=== PATIENT | male | born 1950 | race Caucasian/White ===

== ENCOUNTER 2016-08-28 12:10 | Outpatient (CLI) | payer MEDICARE, OTHER ==
[2016-08-28] MEDS ORDERED: Iopamidol 408 MG/ML 20 ML SDV ONE (13:14)
[2016-08-28] MEDS ORDERED: Dexamethasone 10 MG/ML SDV ONE (13:17)
[2016-08-28 14:28] VITALS: BP 143/72
--- NOTE | 2016-08-28 19:28 | PROC ---
TITLE: Evaluation. SUBJECTIVE: This patient returns today after having SI joint injection about 9 weeks ago. He stated that it was doing really well for him for about a week and he started to have little more discomfort and he went to the chiropractor and he has been pain-free since that time. Today, he comes in for increasing discomfort in his neck on the right side. He describes it as an aching pain which originates in his neck, goes out to his shoulder and then comes down and around into the nipple line. This dermatome is consistent with C4. He is having radicular type symptoms. When he positions his neck in certain ways, he begins to have a significant amount of tingling and severe pain going into the shoulder and there is severe increase in tingling in the chest area. It is around both the front and the back but only on the right side. He denies any weakness in the arm or anything going down into the arm itself other than to the shoulder. He says his pain is 4/10 today, it gets up to a 9/10, it is best at 1/10. It is made worse by his driving or positioning his head in certain ways like when he sleeps. He does get awakened in the night sometimes with this severe discomfort, repositions and goes back to sleep. What makes it better is repositioning as well as heat seems to help a little bit. The gabapentin seems to help as well. Chiropractor might have helped slightly. He says that each day that he does have this pain and it gets up to about a 9/10 every day. It is affecting his ability to do some of his the chores or to drive effectively. OBJECTIVE: This is a 65-year-old male, who is alert and oriented x3, he is quite pleasant and conversive. I did do upper muscle strength testing, did shoulder abduction, adduction, and flexion. These were 5/5 bilaterally. Forearm extension and flexion are 5/5 bilaterally. Wrist flexors and extensors were 5/5 bilaterally. Finger extensors and thumb were 5/5 bilaterally. Reflexes are 2+ in the biceps bilaterally, 2+ in the triceps bilaterally, and 2+ in the brachioradialis. Love's is negative bilaterally. Axial pressure is negative. Lhermitte test was negative. When I do apply pressure and laterally bend his neck to the right side he does start to have discomfort and tingling into the right shoulder and chest area. Axial bending of the neck reveals no restrictions except for right lateral rotation, which is -1 in movement and severe increase in discomfort when he does that. Pulses are 2+. Cap refill is less than 3 seconds bilaterally. Extremities are pink. This patient's pain is consistent with C4 radiculopathy. It is consistent with the C4 dermatome. I did find 1 trigger point in the trapezius on the right side. ASSESSMENT: Cervical radiculopathy with right-sided radiation, possible myofascial. Right shoulder and arm pain, right chest pain. PLAN: Plan to do a cervical epidural steroid injection at C7-T1. I also did talk to him about getting increasing doing some physical therapy to see if we can get a little more strength and conditioning. Patient says that he is sleeping well, we did discuss that. I did talk about doing exercises and other dye considerations as well. Radiation 32 seconds and 6.27 mGy. PROCEDURE NOTE: The patient was brought in the operating room and placed prone on the prone positioner. Knees and hips were flexed. Ankles placed on a bolster. Abdomen was allowed to hang freely in the prone within the positioner. Shoulders were well supported, less than 90 degrees. Head was in the head cradle with eyes and ears clear. I brought in the C-arm, targeting the C7-T1 interspace I squared up on the T1 vertebra. I then located the interspace and a using clamp on the skin for targeting slightly to the right side and when I got acceptable targeting I placed a karlo corresponding to that on the skin. At this point the area was prepped in a wide prep by Caitlyn Vincent R.N., with ChloraPrep. At this point, I placed a sterile fenestrated drape, plastic drape over the site. I then used 1% lidocaine and raised a skin wheal and infiltrated with approximately 5 mL of lidocaine superficially and deeply. I then placed a 20- gauge Tuohy needle in beam and directed it coaxially. I directed it toward the T1 lamina. When I contacted the T1 lamina, I went to a left lateral oblique, put it in the anterior laminar line view, obliqued approximately 25 degrees. I advanced the needle until I contacted the bone and then locked it forward until the needle began to slip past the lamina. At that point, I switched over to a loss of resistance technique and I advanced the needle until I had loss of resistance. I double checked the image and it seemed to be in good position, however, when I connected the contrast, aspirated, injected 0.5 mL, I did see a little bit posterior spread, so I again advanced the needle using a loss resistance technique again and then taking another image which seemed to be better positioning of the needle. I then connected the contrast syringe of [id number]-M 200, aspirated and injected approximately 1 mL. This showed good posterior spread of the contrast in the epidural space. That image was saved. I went back to the more AP view and saw good spread of the contrast within the epidural space along the right side, in particular, that image was saved. I then connected the medication syringe which contained 5 mL total volume with 1 mL being 10 mg of Decadron and one 2/10th of 1% lidocaine and the remainder being normal saline. I aspirated. No blood or CSF was noted. I then began injection. The syringe injected easily. The patient reported no pressure discomfort on injection. When I finished after about 30 to 40 seconds, I then removed the needle. The area was washed. A Band-Aid was applied. I did look for trigger points and I found 1 in the trapezius as I said in the nexus of the neck and shoulder. I used lidocaine 1% and placed a 27-gauge needle into the trigger point, injected 1 mL into the trigger point and peppered 2 mL around needling the trigger point as I went. When I finished, the patient walked back to the preop holding area. Vital signs were monitored. No untoward effects were noted. No signs or symptoms of local anesthetic toxicity or neuromuscular deficit were noted. The patient reported that his pain was down to about 1-2/10. The patient was discharged without incident. CK: 08/28/2016 14:25:16 MODL: 08/28/2016 19:18:01 /[id number]
== END 2016-08-28 14:40 | disposition home or self-care (01) ==
LOC: VM.PAIN 12:10
PROVIDERS: ATTEND Nurse Anesthetist, Certified Registered
DX: M25.512 Pain in left shoulder (principal); M54.2 Cervicalgia
CPT/HCPCS: 62320; J1100

== ENCOUNTER 2019-04-19 17:39 | Emergency (ER) | payer MEDICARE, OTHER ==
[2019-04-19] MEDS ORDERED: Diphtheria/Tetanus Toxoids,Adult (Td) 0.5 ML SDV IM ONE (17:58)
--- NOTE | 2019-04-19 18:01 | EDM.PDOC ---
ED HPI GENERAL MEDICAL PROBLEM - General Chief Complaint: Laceration Stated Complaint: LACERATION TO RING FINGER OF L HAND Time Seen by Provider: 04/19/19 17:55 Source of Information: Reports: Patient - History of Present Illness INITIAL COMMENTS - FREE TEXT/NARRATIVE: Jethro is a 68 y/o male who was using a table saw this afternoon when he caught his left ring finger in it. He was able to pull it out. He is here to have it repaired. Reports his last tetanus was more than 5 years ago. - Related Data Allergies Allergy/AdvReac Type Severity Reaction Status Date / Time No Known Allergies Allergy Verified 04/19/19 17:50 Home Meds: Home Meds Cholecalciferol (Vitamin D3) [Vitamin D3] 1,000 units PO DAILY 05/30/15 [History ] Cyanocobalamin (Vitamin B12) [Vitamin B12] 1,000 mcg PO DAILY 05/30/15 [History] Glucosamine/D3/Boswellia Aurora [Glucosamine Complex Tablet] 1 cap PO DAILY 05/30 [History] Losartan Potassium [Cozaar] 1 tab PO DAILY 05/30/15 [History] Potassium Chloride 1 tab PO DAILY 05/30/15 [History] amLODIPine [Norvasc] 1 tab PO DAILY 05/30/15 [History] Allopurinol [Zyloprim] 300 mg PO DAILY 04/19/19 [History] Amoxicillin/Clavulanate K [Augmentin 875-125 MG] 1 tab PO BID 5 Days #10 tablet NS 04/19/19 [Rx] Chlorthalidone 25 mg PO DAILY 04/19/19 [History] Colchicine 0.6 mg PO ASDIRECTED PRN 04/19/19 [History] Past Medical History Cardiovascular History: Reports: Hypertension Musculoskeletal History: Reports: Gout Other Musculoskeletal History: djd Other Endocrine/Metabolic History: prediabetes Other Hematologic History: vit d def - Past Surgical History Other HEENT Surgeries/Procedures: EYE SX Other Male Surgeries/Procedures: VASECTOMY Social & Family History - Tobacco Use Smoking Status *Q: Unknown Ever Smoked ED ROS GENERAL - Review of Systems Review Of Systems: See Below Constitutional: Reports: No Symptoms HEENT: Reports: No Symptoms Respiratory: Reports: No Symptoms Cardiovascular: Reports: No Symptoms Endocrine: Reports: No Symptoms GI/Abdominal: Reports: No Symptoms : Reports: No Symptoms Musculoskeletal: Reports: Other (left ring finger laceration/injury; left middle finger injury to tip) Skin: Reports: No Symptoms Neurological: Reports: No Symptoms Psychiatric: Reports: No Symptoms Hematologic/Lymphatic: Reports: No Symptoms Immunologic: Reports: No Symptoms ED EXAM, SKIN/RASH Exam: See Below Exam Limited By: No Limitations General Appearance: Alert, WD/WN, No Apparent Distress Ears: Other (Deferred) Nose: Other (Deferred) Throat/Mouth: Other (Deferred) Head: Atraumatic, Normocephalic Neck: Other (Deferred) Respiratory/Chest: No Respiratory Distress Cardiovascular: Other (Deferred) GI/Abdominal: Soft, No Distention, Other (Male) Exam: Deferred Rectal (Males) Exam: Deferred Back Exam: Other (Deferred) Extremities: Other (note 1.5 cm laceration to left 4th finger along PIP joint on the medial aspect, mildly bleeding; ROM intact to left 4th finger; note superficial injury to tip of left 3rd finger) Neurological: Alert, Oriented, CN II-XII Intact Course - Vital Signs Text/Narrative:: 1800 The patient was seen by the DIRECTOR OF TECHNOLOGY. Xray was ordered. The laceration was repaired. See Procedure note. Tetanus was updated. 1849 He was given Ceftriaxone 1 gm IM and then prescribed Augmentin for home since the xray noted to have a subtle disruption in the middle phalanx of the left ring finger. He was given discharge instructions and sent home in stable condition. Last Recorded V/S: Last Vital Signs Temp 36.8 C 04/19/19 17:43 Pulse 67 04/19/19 17:43 Resp 18 04/19/19 17:43 BP 152/67 H 04/19/19 17:43 Pulse Ox 95 04/19/19 17:43 - Orders/Labs/Meds Orders: Active Orders 24 hr Category Date Time Status Vaccines to be Administered [RC] PER UNIT ROUTINE Care 04/19/19 17:58 Ordered Meds: Medications Discontinued Medications Generic Name Dose Route Start Last Admin Trade Name Freq PRN Reason Stop Dose Admin Ceftriaxone Sodium 1 gm/ 0 gm 04/19/19 18:26 04/19/19 18:37 Lidocaine HCl 2.1 ml IM 04/19/19 18:27 2.1 inj ONETIME ONE Administration Lidocaine HCl 10 ml 04/19/19 18:28 04/19/19 18:37 Xylocaine-Mpf 2% (Sterile-Chuckie) INJECT 04/19/19 18:29 10 ml ONETIME ONE Administration Tetanus/Diphtheria Toxoids 0.5 ml 04/19/19 17:58 04/19/19 18:08 Tenivac IM 04/19/19 17:59 0.5 ml .ONCE ONE Administration - Radiology Interpretation Free Text/Narrative:: Xray-left ring finger=subtle nondisplaced disruption in the middle phalanx ( final radiology read did not note fracture) Departure - Departure Time of Disposition: 18:58 Disposition: Home, Self-Care 01 Condition: Good Clinical Impression: Laceration of finger of left hand, Tetanus toxoid inoculation, Accidental injury due to hand tool - Discharge Information *PRESCRIPTION DRUG MONITORING PROGRAM REVIEWED*: No *COPY OF PRESCRIPTION DRUG MONITORING REPORT IN PATIENT MADY: No Prescriptions: Amoxicillin/Clavulanate K [Augmentin 875-125 MG] 1 tab PO BID 5 Days #10 tablet NS Instructions: Laceration Care, Adult, Sutured Wound Care, VIS, Tetanus, Diphtheria, and Pertussis (Tdap) - [facility] [place] (10/18/2014) Referrals: Meryl Wooten DO [Primary Care Provider] - Forms: ED Department Discharge Additional Instructions: 1)Keep the dressing intact for 24 hours, then you may remove it and wash the wound with soap and water daily. Apply antibiotic ointment twice daily for hte next 2-3 days very lightly, bu then leave open to the air to enhance healing. Cover the wound only with a bandaid or wear gloves when you are working outside. 2)Watch for signs of infection such as redness, drainage, or swelling and report to your PCP 3)Use Tylenol or Motrin as needed for pain 4)Augmentin 875mg oral twice daily for 5 days (Rx) 5)Follow up in clinic in 10 days for suture removal - My Orders Last 24 Hours: My Active Orders 04/19/19 17:58 Vaccines to be Administered [RC] PER UNIT ROUTINE - Assessment/Plan Last 24 Hours: My Active Orders 04/19/19 17:58 Vaccines to be Administered [RC] PER UNIT ROUTINE
[2019-04-19 18:03] VITALS: BP 152/67
[2019-04-19] MEDS ORDERED: cefTRIAXone 1 GM, Lidocaine 1% 2.1 ML IM ONE ×2 (18:26)
[2019-04-19] MEDS ORDERED: Lidocaine 2% 10 ML Amp INJECT ONE (18:28)
--- NOTE | 2019-04-19 18:34 | CR ---
[id number] RAD/RAD Fingers Left EXAM: 3 VIEWS LEFT HAND. INDICATION: CUT WITH TABLE SAW. COMPARISON: None. DISCUSSION: No fracture, dislocation or other acute osseous abnormality. Mild degenerative changes seen throughout the left hand and wrist. Soft tissue defect involving the distal 4th phalanx. IMPRESSION: 1. Soft tissue defect involving the distal 4th phalanx without acute osseous abnormality. Teofilo Dior DO 04/19/19 1832 Thank you for allowing us to participate in the care of your patient.
== END 2019-04-19 19:08 | disposition home or self-care (01) ==
LOC: VM.ED 17:39
DX: S61.215A Laceration without foreign body of left ring finger without damage to nail, initial encounter (principal); I10 Essential (primary) hypertension; M10.9 Gout, unspecified; Z79.899 Other long term (current) drug therapy; W27.0XXA Contact with workbench tool, initial encounter
CPT/HCPCS: 12001; 73140-F3; 90471; 90714; 99283-25; 99283-GF; J0696; J2001